=== PATIENT | male | born 1990 | race Caucasian/White ===

== ENCOUNTER 2018-07-11 18:54 | Inpatient (IN) | payer MEDICAID ==
[~2018-07-11] VITALS: Ht 170.2 cm; Wt 77.6 kg
[2018-07-11 19:19] VITALS: BP 134/71
--- NOTE | 2018-07-11 21:11 | NUR ---
PT AMBULATED TO ER BED 2
--- NOTE | 2018-07-11 21:23 | NUR ---
PT TO ED WITH CAREGIVER FOR C/O FEVER X1 DAY. PER CAREGIVR NO RECENT TRAVEL DENIES N/V/D. NO OBVIOUS DISTRESS NOTED. PT HAS HX OF AUTISM AND IS UNABLE TO VERBALIZE S/S OR CHIEF COMPLAINT. PT PLACED INTO BED, PENDING MD MARQUEZ. CAREGIVER AT BEDSIDE.
--- NOTE | 2018-07-11 22:20 | NUR ---
PT FEBRILE AT 101.1. MEDICATED PER FEVER PROTOCOL.
[2018-07-11] MEDS ORDERED: IBUPROFEN 400 MG TAB PO ONE (22:25)
--- NOTE | 2018-07-11 22:47 | NUR ---
# 14 FR Urinary catheter inserted utilizing sterile technique. Immediate return of 200 ml DARK YELLOW urine noted. Urine sample collected and sent to lab. Pt tolerated procedure WELL.
[2018-07-11 23:11] LABS: HEMATOCRIT 38.8 % (36-52); HEMOGLOBIN 13.5 g/dL (12.0-18.0); MEAN CORPUSCULAR HEMOGLOBIN 33 pg (27-31); MEAN CORPUSCULAR HGB CONC 35 g/dL (33-37); MEAN CORPUSCULAR VOLUME 94.4 fL (80-94); PLATELET COUNT (AUTO) 411 K/uL (140-450); RED BLOOD CELL COUNT(AUTO) 4.11 MIL/uL (4.20-6.10); RED CELL DISTRIBUTION WIDTH 13.2 % (11.6-13.7); WHITE BLOOD COUNT (AUTO) 21.4 K/uL (4.8-10.8)
[2018-07-11 23:20] LABS: APPEARANCE,URINE CLEAR (CLEAR); BILIRUBIN,URINE NEGATIVE (NEGATIVE); BLOOD, URINE 3+ (NEGATIVE); COLOR,URINE YELLOW (YELLOW); LEUKOCYTE ESTERASE ,URINE NEGATIVE (NEGATIVE); NITRITE, URINE NEGATIVE (NEGATIVE); UGLUCOSE NEGATIVE (NEGATIVE)
[2018-07-11 23:23] LABS: ANION GAP 14.9 (8-16); CARBON DIOXIDE 24.6 mmol/L (21-32); CREATININE 0.7 mg/dL (0.7-1.3); POTASSIUM 3.5 mmol/L (3.5-5.1)
[2018-07-11 23:29] LABS: ALBUMIN 3.5 g/dL (3.4-5.0); TOTAL BILIRUBIN 0.3 mg/dL (0.0-1.0)
[2018-07-11 23:34] LABS: RBC,URINE 20-50 /HPF (0-5)
[2018-07-11 23:40] LABS: LYMPHOCYTES % (MANUAL) 6 % (20-46); MONOCYTES % (MANUAL) 9 % (5-12)
[2018-07-11] MEDS ORDERED: NACL 0.9% 2,000 ML IV ONE (23:50)
[2018-07-12] MEDS ORDERED: MORPHINE SULFATE 2 MG/ML SYR IVP PRN (02:00)
[2018-07-12] MEDS ORDERED: ZOLPIDEM 5 MG TAB PO PRN (02:00)
[2018-07-12] MEDS ORDERED: HYDROcodone/APAP 5/325 MG 1 TAB TAB PO PRN (02:00)
[2018-07-12] MEDS ORDERED: ONDANSETRON 4 MG/2 ML VIAL IM/IVP PRN (02:00)
[2018-07-12] MEDS ORDERED: LORazepam 2 MG/ML VIAL IM/IVP PRN (02:00)
[2018-07-12] MEDS ORDERED: DOCUSATE SODIUM 100 MG GELCAP PO PRN (02:00)
[2018-07-12 02:30] VITALS: BP 109/61
--- NOTE | 2018-07-12 02:35 | NUR ---
RECEIVED PT FROM ER VIA CORY REPORT GIVEN AT BED SIDE PT AAOX1 PT HX MENTAL RETARDED, PT FOLLOW SIMPLE COMMANDS RESPOND BY CALLING HIS NAME BY PT IS NONVERBAL, AMBULATORY ON TELEMETRY SR97 FIRST AVB,, IV ON RT AC GAUGE # 20 PATENT SKIN IS INTACT , NARES ARE SWAB FOR MRSA SCREENING PROTOCOL AND SENT TO LAB, LIME PLANT OPERATOR AT BED SIDE GIVING INFORMATION ABOUT PT PT AND CAREGIVER ARE ORIENTED TO THE FLOOR CALL LIGHT WITHIN REACH
--- NOTE | 2018-07-12 02:37 | NUR ---
Patient will be admitted to care of DR BADILLO. Admited to TELE. Will go to room 122-B. Belongings list completed. Report to KATI CASTRO.
[2018-07-12 02:38] LABS: PROTHROMBIN TIME 10.5 secs (10.8-13.4)
[2018-07-12 02:45] LABS: CHOL/HDL RATIO 2.7 (1-4.5); MAGNESIUM 1.7 mg/dL (1.8-2.4); PHOSPHORUS 4.2 mg/dL (2.5-4.9); THYROID STIMULATING HORMONE 0.73 uIU/mL (0.34-3.74)
[2018-07-12] MEDS: NACL 0.9% 1,000 ML IV SCH ×3 (02:49→21:59)
[2018-07-12] MEDS ORDERED: PIPERACILLIN/TAZOBACTAM 3.375 GM VIAL IV ONE (03:08)
[2018-07-12] MEDS ORDERED: VANCOMYCIN 1,000 MG VIAL ONE ×2 (03:08→04:10)
[2018-07-12] MEDS ORDERED: PIPERACILLIN/TAZOBACTAM 3.375 GM in DEXTROSE 5% 50 ML IV SCH (03:15)
[2018-07-12] MEDS ORDERED: VANCOMYCIN PER PHARMACY MC PRN (03:20)
[2018-07-12] MEDS ORDERED: VANCOMYCIN 1,000 MG in DEXTROSE 5% 250 ML IV SCH (03:30)
[2018-07-12] MEDS ORDERED: VANCOMYCIN 1,250 MG in DEXTROSE 5% 250 ML IV SCH (03:45)
[2018-07-12] MEDS ORDERED: LEVE1000 PO (04:07)
[2018-07-12] MEDS ORDERED: DIVA500T1 PO (04:07)
[2018-07-12] MEDS ORDERED: CLON0.5T11 PO (04:07)
[2018-07-12] MEDS ORDERED: QUET100T PO (04:07)
[2018-07-12] MEDS ORDERED: VITA1TAB44 PO (04:07)
[2018-07-12] MEDS ORDERED: VITD1000 PO (04:07)
[2018-07-12] MEDS ORDERED: CARB100T PO (04:07)
--- NOTE | 2018-07-12 04:08 | NUR ---
ZOSYN IVPB AND VANCOMYCIN IS GIVEN ORDER
--- NOTE | 2018-07-12 04:15 | NUR ---
SITTER AT BED SIDE NOT DISTRESS NOTED AT THIS TIME
[2018-07-12] MEDS ORDERED: MAGNESIUM OXIDE 400 MG TAB PO SCH (04:45)
--- NOTE | 2018-07-12 06:00 | NUR ---
PT SLEEPING WELL ON SR ON TELE PT WILL BE ENDORSED TO DAY SHIF NURSE TO CONTINUE CARE
[2018-07-12] MEDS ORDERED: PIPER/TAZO 3.375GM/D5W PREMIX 50 ML IV SCH ×2 (07:00→12:00)
--- NOTE | 2018-07-12 07:15 | NUR ---
Received bedside report from pm nurse Rima. Pt awake, nonverbal, FLACC 0. Sitter at bedside. Left AC IV intact & asymptomatic, site wrapped with stretch gauze. Pt noted to be pulled on gauze. Education provided re: need for IVF & IV abx. Pt unable to return demonstrate teaching nor verbalize understanding.
[2018-07-12 08:00] VITALS: BP 137/90
--- NOTE | 2018-07-12 08:00 | NUR ---
Spoke to Kof[facility] pharmacist & inquired about Zosyn dose scheduled for 0700 with last dose given at 0300. Per Kofi, he will reschedule 0700 dose for 0900.
[2018-07-12] MEDS: VIT-B COMP/VIT-C/FOLIC ACID 1 TAB PO SCH (08:35)
[2018-07-12] MEDS: levETIRAcetam 500 MG TAB PO SCH ×2 (08:36→20:56)
[2018-07-12] MEDS: QUEtiapine FUMARATE 100 MG TAB PO SCH ×2 (08:37→20:57)
--- NOTE | 2018-07-12 08:37 | NUR ---
PATIENT HAS BEEN SCREENED AND CATEGORIZED HIGH NUTRITION RISK. PATIENT WILL BE SEEN WITHIN 1-2 DAYS OF ADMISSION. 07/12/18-07/13/[address]
[2018-07-12] MEDS: LACTOBACILLUS RHAMNOSUS GG 1 EACH CAP PO SCH (08:38)
[2018-07-12] MEDS: CHOLECALCIFEROL 1,000 IU TAB PO SCH ×2 (08:39→21:00)
[2018-07-12] MEDS: PIPER/TAZO 3.375GM/D5W PREMIX 50 ML IV SCH ×3 (08:54→20:53)
--- NOTE | 2018-07-12 09:30 | NUR ---
PO medications administered whole, one-by-one, with small amt applesauce, with pt sitting upright in bed. No signs of dysphagia/aspiration noted. Pt mumbling "food, food". Dr. Cha notified of efficient swallowing. Per physician, she will ask [facility] of usual diet consistency & will input diet order.
--- NOTE | 2018-07-12 09:34 | NUR ---
Received phone call from Nataliya Leyva (business systems administrator from [facility]). Addendum: 07/12/18 at [address] RN Addendum: Nataliya notified of pt's current status.
--- NOTE | 2018-07-12 10:45 | NUR ---
Received call from [facility] pharmacist with request to clarify Tegretol & Divalproex if ER/XR, & if Clonazepam is given routinely. Will call responsible alliance party.
[2018-07-12 10:54] LABS: BASOPHILS % (AUTO) 0.1 % (0.0-2.0); EOSINOPHILS % (AUTO) 0.1 % (0.0-4.0); HEMATOCRIT 38.4 % (36-52); HEMOGLOBIN 13.2 g/dL (12.0-18.0); LYMPHOCYTES # (AUTO) 1.4 K/uL (2.0-11.5); LYMPHOCYTES % (AUTO) 6.4 % (20.5-51.1); MEAN CORPUSCULAR HEMOGLOBIN 33 pg (27-31); MEAN CORPUSCULAR HGB CONC 35 g/dL (33-37); MEAN CORPUSCULAR VOLUME 94.6 fL (80-94); MONOCYTES # (AUTO) 1.9 K/uL (0.8-1.0); MONOCYTES % (AUTO) 8.9 % (1.7-9.3); NEUTROPHILS # (AUTO) 18.3 K/uL (1.8-7.7); NEUTROPHILS % (AUTO) 84.5 % (42.2-75.2); PLATELET COUNT (AUTO) 380 K/uL (140-450); RED BLOOD CELL COUNT(AUTO) 4.06 MIL/uL (4.20-6.10); RED CELL DISTRIBUTION WIDTH 13.3 % (11.6-13.7); WHITE BLOOD COUNT (AUTO) 21.7 K/uL (4.8-10.8)
--- NOTE | 2018-07-12 11:00 | NUR ---
Spoke to Nataliya on the phone & clarified that Tegretol & Divalproex ER/XR were given at [facility], & clonazepam was given routinely. Also clarified diet texture. Per Nataliya, pt takes mech soft chopped diet. [facility] pharmacist notified of med clarification, & Dr Cha notified of diet followed at [facility].
[2018-07-12 11:09] LABS: ANION GAP 13.9 (8-16); CARBON DIOXIDE 24.1 mmol/L (21-32); CREATININE 0.6 mg/dL (0.7-1.3)
[2018-07-12 12:00] VITALS: BP 136/84
[2018-07-12] MEDS ORDERED: DIVALPROEX 500 MG TABEC PO SCH (12:00)
[2018-07-12] MEDS ORDERED: carBAMazepine 200 MG TAB PO SCH (12:00)
[2018-07-12] MEDS: ACETAMINOPHEN 325 MG TAB PO PRN ×2 (12:00→20:55)
--- NOTE | 2018-07-12 12:00 | NUR ---
Acetaminophen administered for oral temp 100.5�F. Pt awake, nonverbal, FLACC 0, able to follow simple commands. No cough noted. No hematuria. Thick blankets removed. Room temp kept between 70-75�F. Tepid sponge bath provided.
[2018-07-12] MEDS: clonazePAM 0.5 MG TAB PO SCH ×2 (12:01→16:34)
--- NOTE | 2018-07-12 13:00 | NUR ---
Acetaminophen reassessment: Current oral temp is 99.0�F. Pt asleep, arousable by auditory stimuli. Able to follow simple commands, but requires reinforcement to avoid pulling on IV & security monitor leads. No cough noted. No foul-smelling urine. Room kept cool, no thick blankets. No shivering noted. Sitter at bedside.
--- NOTE | 2018-07-12 13:24 | NUR ---
07/12/18 RD INITIAL ASSESSMENT COMPLETED PLEASE REFER TO NUTRITION ASSESSMENT UNDER CARE ACTIVITY FOR ESTIMATED NUTRITIONAL NEEDS. RD RECOMMENDATIONS: 1. CONTINUE MECHANICAL SOFT DIET TOLERATED. 2. RD WILL F/U 2-3 DAYS; HIGH RISK. JOSE A YOO, RD
--- NOTE | 2018-07-12 13:30 | NUR ---
Pt observed picking on IV site. Pt's attention redirected to TV. Left AC IV intact & asymptomatic with ongoing NS @ 100ml/hr, site wrapped with stretch gauze. Sitter remains at bedside.
[2018-07-12 16:00] VITALS: BP 124/75
--- NOTE | 2018-07-12 16:00 | NUR ---
Elevated temp: Pt with temporal temp of 100.7�F. Pt awake, nonverbal, no cough/SOB, FLACC 0. Thick blanket removed, room temp decreased, tepid sponge bath provided. Left AC IV intact with ongoing NS @ 100ml/hr. Sitter at bedside. Per sitter, pt cont to have frequent episodes of picking on IV & air cargo agent leads & requires reinforcement & redirection. Will cont to monitor.
--- NOTE | 2018-07-12 17:00 | NUR ---
Temp reassessment: Current oral temp is 99.5�F. Pt awake, no SOB/cough, no foul-smelling urine. Will cont to monitor.
--- NOTE | 2018-07-12 18:10 | NUR ---
Pt in upright position in bed, eating dinner with mod assist by sitter. No signs of distress. Left AC IV intact with ongoing NS @ 100ml/hr.
--- NOTE | 2018-07-12 19:10 | NUR ---
Bedside report given to pm nurse Rima. Pt in bed, awake, no signs of distress. Sitter at bedside.
--- NOTE | 2018-07-12 19:15 | NUR ---
RECEIVED PT FROM HUGH RN PT NONVERBAL, MENTAL DISABILITY , SIDE RAIL PADDED IV ON LEFT ARM INFUSING WELL ON TELEMETRY ST, PT AAOX1 FOLLOW SIMPLE COMMANDS SITTER AT BED SIDE INITIAL ASSESSMENT DONE
[2018-07-12 20:00] VITALS: BP 144/92
[2018-07-12] MEDS: DIVALPROEX 500 MG TABEC PO SCH (20:56)
[2018-07-12] MEDS: carBAMazepine 200 MG TAB PO SCH (20:59)
--- NOTE | 2018-07-12 21:45 | NUR ---
AFTER TYLENOL GIVEN FOR FEVER AND COLD MEASURES APPLY TEMP LOWER TO 99.
--- NOTE | 2018-07-12 23:21 | NUR ---
PT SLEEPING SITTER AT BED SIDE . ST ON TELEMETRY PT KEEP MOVING AND TRYING TO REMOVE CONSTANTLY THE TELEMETRY PAD
[2018-07-13] VITALS: BP 110/53
--- NOTE | 2018-07-13 01:00 | NUR ---
SPONGE BATH GIVEN LINEN CHANGED ON TELEMETRY ST PT COOPERATIVE TO TURN, NOT FEVER NOTED
[2018-07-13] MEDS: PIPER/TAZO 3.375GM/D5W PREMIX 50 ML IV SCH ×4 (02:20→22:01)
[2018-07-13] MEDS: NACL 0.9% 1,000 ML IV SCH ×2 (02:50→23:26)
--- NOTE | 2018-07-13 03:00 | NUR ---
PT AWAKE SITTER AT BEDSIDE PT KEEP TRYING REMOVING PD FROM TELEMETRY , PT INCONTINENT LINEN CHANGED NECESSARY
[2018-07-13 04:00] VITALS: BP 124/93
--- NOTE | 2018-07-13 05:07 | NUR ---
DR MENENDEZ WAS NOTIFY PT CONDITION AND TRYING REMOVING PAD FROM TELMETRY AND BITE , LINEN CHANGED
[2018-07-13 06:20] LABS: BASOPHILS # (AUTO) 0.1 K/uL (0.00-0.22); BASOPHILS % (AUTO) 0.3 % (0.0-2.0); CREATININE 0.5 mg/dL (0.7-1.3); EOSINOPHILS # (AUTO) 0.3 K/uL (0-0.4); EOSINOPHILS % (AUTO) 1.5 % (0.0-4.0); HEMATOCRIT 35.3 % (36-52); HEMOGLOBIN 12.2 g/dL (12.0-18.0); LYMPHOCYTES # (AUTO) 3.3 K/uL (2.0-11.5); LYMPHOCYTES % (AUTO) 17.4 % (20.5-51.1); MEAN CORPUSCULAR HEMOGLOBIN 33 pg (27-31); MEAN CORPUSCULAR HGB CONC 35 g/dL (33-37); MEAN CORPUSCULAR VOLUME 96.4 fL (80-94); MONOCYTES # (AUTO) 1.9 K/uL (0.8-1.0); MONOCYTES % (AUTO) 10.3 % (1.7-9.3); NEUTROPHILS # (AUTO) 13.4 K/uL (1.8-7.7); NEUTROPHILS % (AUTO) 70.5 % (42.2-75.2); PLATELET COUNT (AUTO) 404 K/uL (140-450); RED BLOOD CELL COUNT(AUTO) 3.66 MIL/uL (4.20-6.10); RED CELL DISTRIBUTION WIDTH 13.5 % (11.6-13.7); WHITE BLOOD COUNT (AUTO) 18.9 K/uL (4.8-10.8)
[2018-07-13 06:25] LABS: MAGNESIUM 2.1 mg/dL (1.8-2.4); PHOSPHORUS 4.1 mg/dL (2.5-4.9)
--- NOTE | 2018-07-13 06:25 | NUR ---
PT SLEEPING AT THIS TIME ON TELEMETRY SR NOT FEVER SITTER AT BED SIDE PT WILL BE ENDORSED TO DAY SHIFT NURSE FOR CONTINUITY OF CARE
--- NOTE | 2018-07-13 07:15 | NUR ---
RECEIVED BEDSIDE REPORT FROM NIGHT NURSE. PT IS AOX1 RESTING IN BED WITH NO OBVIOUS SIGNS OF ACUTE DISTRESS WITH BREATHING EQUAL BOTH SIDES UNLABORED. PT FLACC0. LEFT AC IV SITE PATENT AND ASYMPTOMATIC INFUSING NS@100ML/HR. ALL SAFETY MEASURES IN CHECK, SITTER BY BEDSIDE. CALL LIGHT WITHIN REACH.
[2018-07-13 08:00] VITALS: BP 141/94
[2018-07-13] MEDS: VIT-B COMP/VIT-C/FOLIC ACID 1 TAB PO SCH (08:47)
[2018-07-13] MEDS: LACTOBACILLUS RHAMNOSUS GG 1 EACH CAP PO SCH (08:47)
[2018-07-13] MEDS: CHOLECALCIFEROL 1,000 IU TAB PO SCH ×2 (08:47→22:04)
[2018-07-13] MEDS: QUEtiapine FUMARATE 100 MG TAB PO SCH ×2 (08:47→22:03)
[2018-07-13] MEDS: carBAMazepine 200 MG TAB PO SCH ×2 (08:47→22:03)
[2018-07-13] MEDS: levETIRAcetam 500 MG TAB PO SCH ×2 (08:48→22:03)
[2018-07-13] MEDS: DIVALPROEX 500 MG TABEC PO SCH ×2 (08:48→22:02)
[2018-07-13] MEDS: clonazePAM 0.5 MG TAB PO SCH ×3 (08:49→16:19)
--- NOTE | 2018-07-13 08:56 | NUR ---
ADMINISTERED MEDICATIONS, PT TOLERATED WELL. PT HAS NO OBVIOUS SIGNS OF DISTRESS, BREATHING SYMMETRICAL AND UNLABORED.
[2018-07-13 12:00] VITALS: BP 139/93
--- NOTE | 2018-07-13 12:38 | NUR ---
ADMINISTERED MEDICATION. PT CURRENTLY SITTING UP IN BED WITH THE TUBER OPERATOR FEEDING HIM LUNCH. NO OBVIOUS SIGNS OF DISTRESS.
--- NOTE | 2018-07-13 12:59 | NUR ---
WAS PHONED BY MARIANELA AT [facility]. SHE WANTED TO KNOW IF PATIENT WAS CURRENTLY STABLE, HOW HIS FEVER IS DOING, AND IF HE WAS CURRENTLY STILL ON ANTIBIOTICS. PROVIDED THIS INFORMATION TO HER AND INFORMED HER TO CALL ME BACK FOR ANY FURTHER INFORMATION.
--- NOTE | 2018-07-13 14:33 | NUR ---
PT IS SLEEPING IN BED AT THIS TIME, BREATHING SYMMETRICAL AND UNLABORED WITH NO OBVIOUS SIGNS OF DISTRESS.
--- NOTE | 2018-07-13 15:09 | NUR ---
ADMINISTERED MEDICATION, PT CURRENTLY SLEEPING IN BED WITH SITTER BY BEDSIDE. BREATHING IS EQUAL AND UNLABORED WITH NO OBVIOUS SIGNS OF DISTRESS.
[2018-07-13 15:43] VITALS: BP 131/90
--- NOTE | 2018-07-13 16:23 | NUR ---
ADMINISTERED MEDICATION. PT IS SITTING UP IN BED WITH SITTER AT BEDSIDE. NO OBVIOUS SIGNS OF DISTRESS AND PT BREATHING SYMMETRICAL AND WITHOUT LABOR.
--- NOTE | 2018-07-13 18:07 | NUR ---
PT SITTING UP IN BED WITH SITTER PRESENT. SITTER STATES PT FINISHED DINNER RECENTLY AND TOLERATED IT WELL. PT HAS NO OBVIOUS SIGNS OF DISTRESS WITH BREATHING SYMMETRICAL AND UNLABORED.
--- NOTE | 2018-07-13 19:05 | NUR ---
GAVE BEDSIDE REPORT DISCUSSED POC AND ENDORSED TO NIGHT NURSE. PT IS STABLE WITH NO OBVIOUS SIGNS OF DISTRESS.
--- NOTE | 2018-07-13 19:05 | NUR ---
RECEIVED REPORT AT BEDSIDE FROM YOBANI PARIKH AND EVENS PARIKH FOR CONTINUITY OF CARE, PT IN STABLE CONDITION.
[2018-07-13 20:00] VITALS: BP 123/69
--- NOTE | 2018-07-13 20:00 | NUR ---
PT IN BED, ALL FALLS AND SEIZURE PRECAUTIONS IN PLACE. PT IS AOX1 WITH SKIN INTACT AND PT HAS A 22G LEFT AC RUNNING N/S AT 60MLS/HR. IV SITE INTACT AND FLUSHED PATENT. PT HAS SITTER AT BEDSIDE. V/S FOLLOWS T98.1 P 70 R 18 B/P 123/69 02 91% ON ROOM AIR. PT INCONTINENT AND WAS CHANGED. NO S/S OF PAIN OR DISTRESS NOTED.
--- NOTE | 2018-07-13 21:00 | NUR ---
PT GIVEN ALL DUE MEDS WITH APPLE SAUCE AND CRANBERRY JUICE. IV ABT ZOSYN HUNG AND RUNNING AT 100MLS/HR ORDERED. SITTER AT BEDSIDE.
[2018-07-14] VITALS: BP 105/56
--- NOTE | 2018-07-14 | NUR ---
PT IN BED SLEEPING NO S/S OF PAIN OR DISTRESS NOTED, SITTER AT BEDSIDE. V/S FOLLOWS T 97.0 P 82 R 18 B/P 128/86 02 96% ON ROOM AIR. ALL FALLS PRECAUTIONS IN PLACE . IV SITE INTACT AND RUNNING N/S AT 60MLS/HR. PT CHANGED NO S/S OF PAIN OR DISTRESS NOTED.
[2018-07-14] MEDS: PIPER/TAZO 3.375GM/D5W PREMIX 50 ML IV SCH ×4 (02:30→20:30)
[2018-07-14 04:00] VITALS: BP 128/86
--- NOTE | 2018-07-14 04:00 | NUR ---
PT IN BED SLEEPING IV REMAINS INTACT RUNNING N/S ORDERED.
--- NOTE | 2018-07-14 04:30 | NUR ---
PT SLEEPING V/S FOLLOWS T 97.0 P 82 R 18 B/P 128/86 02 96%. ON ROOM AIR.
--- NOTE | 2018-07-14 07:15 | NUR ---
REPORT GIVEN TO ELI PARIKH DAY SHIFT NURSE AT BEDSIDE FOR CONTINUITY OF CARE,PT IN STABLE CONDITION.
--- NOTE | 2018-07-14 07:20 | NUR ---
RECEIVED PT FROM PUBLIC HEALTH TECHNICIAN NURSE, SRAVANI, PT IS ON A 1:1 SITTER, PT IS AWAKE AND SEATED ON THE BED WITH SIDE RAILS UP AND CALL LIGHT WITHIN REACH, PT HAS AN IV LINE ON THE LEFT AC G. 20 WITH NS AT 60ML/HR INFUSING, INTACT AND REINFORCED WITH BANDAGE BECAUSE PT IS TRYING TO REMOVE IT. PT HAS MENTAL DISABILITY. FALL PRECAUTION INITIATED. WILL CONTINUE TO MONITOR PT.
[2018-07-14 07:31] LABS: ANION GAP 10.8 (8-16); BASOPHILS % (AUTO) 0.4 % (0.0-2.0); CARBON DIOXIDE 29.1 mmol/L (21-32); CREATININE 0.6 mg/dL (0.7-1.3); EOSINOPHILS # (AUTO) 0.5 K/uL (0-0.4); EOSINOPHILS % (AUTO) 5.5 % (0.0-4.0); HEMATOCRIT 36.2 % (36-52); HEMOGLOBIN 12.3 g/dL (12.0-18.0); LYMPHOCYTES # (AUTO) 2.4 K/uL (2.0-11.5); LYMPHOCYTES % (AUTO) 28.9 % (20.5-51.1); MEAN CORPUSCULAR HEMOGLOBIN 33 pg (27-31); MEAN CORPUSCULAR HGB CONC 34 g/dL (33-37); MEAN CORPUSCULAR VOLUME 96.6 fL (80-94); MONOCYTES # (AUTO) 0.7 K/uL (0.8-1.0); NEUTROPHILS # (AUTO) 4.8 K/uL (1.8-7.7); NEUTROPHILS % (AUTO) 57.2 % (42.2-75.2); PLATELET COUNT (AUTO) 382 K/uL (140-450); POTASSIUM 3.9 mmol/L (3.5-5.1); RED BLOOD CELL COUNT(AUTO) 3.75 MIL/uL (4.20-6.10); RED CELL DISTRIBUTION WIDTH 13.6 % (11.6-13.7); WHITE BLOOD COUNT (AUTO) 8.4 K/uL (4.8-10.8)
[2018-07-14 07:38] LABS: MAGNESIUM 2.1 mg/dL (1.8-2.4); PHOSPHORUS 4.8 mg/dL (2.5-4.9)
[2018-07-14 08:00] VITALS: BP 126/85
--- NOTE | 2018-07-14 08:30 | NUR ---
PT IS AWAKE AND IV LINE WAS PULLED OUT, VITAL SIGNS TAKEN AND IS STABLE, A NEW IV LINE WAS STARTED ON THE LEFT HAND G.24, INTACT.
[2018-07-14] MEDS: DIVALPROEX 500 MG TABEC PO SCH ×2 (09:38→20:29)
[2018-07-14] MEDS: QUEtiapine FUMARATE 100 MG TAB PO SCH ×2 (09:39→20:30)
[2018-07-14] MEDS: CHOLECALCIFEROL 1,000 IU TAB PO SCH ×2 (09:39→20:44)
[2018-07-14] MEDS: levETIRAcetam 500 MG TAB PO SCH ×2 (09:39→20:30)
[2018-07-14] MEDS: VIT-B COMP/VIT-C/FOLIC ACID 1 TAB PO SCH (09:39)
[2018-07-14] MEDS: LACTOBACILLUS RHAMNOSUS GG 1 EACH CAP PO SCH (09:39)
[2018-07-14] MEDS: carBAMazepine 200 MG TAB PO SCH ×2 (09:41→20:30)
[2018-07-14] MEDS: clonazePAM 0.5 MG TAB PO SCH ×3 (09:44→17:19)
[2018-07-14 12:00] VITALS: BP 123/90
--- NOTE | 2018-07-14 13:35 | NUR ---
PT IS AWAKE AND SEATED ON THE BED, SITTER ON THE BEDSIDE, VITAL SIGNS CHECKED AND BP IS 123/90, PULSE IS 98, O2 SATURATION IS 99%, ORAL MEDICATION WAS GIVEN TO PT AND PT TOLERATED IT. NO SIGN OF DISTRESS NOTED AND WILL MONITOR PT.
--- NOTE | 2018-07-14 15:00 | NUR ---
PT'S IV LINE WAS PULLED OUT PER KIRSTEN. WILL REINSERT A NEW IV LINE
--- NOTE | 2018-07-14 15:55 | NUR ---
PT IS AWAKE AND SEATED ON TRHE BED, A NEW IV LINE WAS STARTED TO THE PT'S LEFT FA G.22, IV MEDICATION WAS GIVEN VIA PIGGYBACK ABND PT TOLERATED IT. NO SIGN OF DISTRESS NOTED AND WILL MONITOR PT.
[2018-07-14 16:00] VITALS: BP 145/88
[2018-07-14] MEDS: NACL 0.9% 1,000 ML IV SCH (16:06)
--- NOTE | 2018-07-14 16:35 | NUR ---
PT WAS STARTED ON A NEW IV LINE ON THE LEFT FA G.22, INTACT AND ATTACHED TO IVF OF NS AT 60ML/HR.
--- NOTE | 2018-07-14 17:20 | NUR ---
PT IS AWAKE AND SEATED ON THE BED WITH SITTER ON THE BEDSIDE, VITAL SIGNS TAKEN, BNP IS 146/96, PULSE IS 94, O2 SATURATION IS 98%, TEMPERATURE IS 97.7 AND RESPIRATION IS 16/MIN. NO SIGN OF DISTRESS NOTED AND WILL MONITOR PT.
--- NOTE | 2018-07-14 18:51 | NUR ---
RECEIVED A CRITICAL LAB REPORT FROM ROGER OF LAB ABOUT THE PT'S THROAT CULTURE IS POSITIVE FOR BETA HEMOLYTIC STREPTOCOCCUS GROUP A., DR. CARR WAS INFORMED.
--- NOTE | 2018-07-14 19:20 | NUR ---
ENDORSED PT TO PHARMACEUTICAL WORKER NURSEKAVON FOR CONTINUITY OF CARE, PT IS AWAKE AND STABLE WITH SITTER ON THE BEDSIDE.
--- NOTE | 2018-07-14 19:21 | NUR ---
RECEIVED BEDSIDE REPORT FROM ELI PARIKH. PT IS AAO X1. HAS SITTER AT BEDSIDE. PER NURSE PT KEPT REMOVING IV. PT ON ROOM AIR. RESPIRATIONS ARE EQUAL AND UNLABORED. IV ON LFA 22G IVF INFUSING PER ORDERS. PT IS INCONTINENT. PMH SEVERE MENTAL DELAYED. PT ON MECHANICAL SOFT DIET. SAFETY MEASURES ARE IN PLACE. WILL CONTINUE TO MONITOR.
--- NOTE | 2018-07-14 20:30 | NUR ---
SCHEDULED MEDICATIONS CRUSHED GAVE WITH APPLE SAUCE PT REFUSED ATTEMPTED WITH JELLO PT TOOK TWO MEDICATIONS THEN REFUSED REST. ADMINISTER MEDICATION WITH PUDDING. PT DID NOT TAKE VITAMIN D ALL OTHER MEDICATIONS GIVEN. WILL CONTINUE TO MONITOR.
--- NOTE | 2018-07-14 23:13 | NUR ---
PATIENT IS RESTING COMFORTABLY IN BED. NO S/S OF DISTRESS. ALL NEEDS MET AT THIS TIME WILL CONTINUE TO MONITOR. SITTER AT BEDSIDE.
[2018-07-14 23:58] VITALS: BP 132/71
--- NOTE | 2018-07-15 | NUR ---
VITAL SIGNS ARE WITHIN NORMAL LIMITS. ALL NEEDS MET AT THIS TIME. WILL CONTINUE TO MONITOR. SITTER AT BEDSIDE
[2018-07-15] MEDS: PIPER/TAZO 3.375GM/D5W PREMIX 50 ML IV SCH ×2 (03:10→09:59)
--- NOTE | 2018-07-15 03:10 | NUR ---
PATIENT HAD A LARGE BM. PT CLEANED AND REPOSITION FOR COMFORT. ZOSYN NOW INFUSING PER ORDERS. ALL NEEDS MET AT THIS TIME. WILL CONTINUE TO MONITOR. SITTER AT BEDSIDE.
[2018-07-15] MEDS: NACL 0.9% 1,000 ML IV SCH (05:06)
--- NOTE | 2018-07-15 07:18 | NUR ---
GAVE BEDSIDE REPORT TO LISSY PARIKH. PT ENDORSED IN STABLE CONDITION.
--- NOTE | 2018-07-15 07:20 | NUR ---
RECEIVED BEDSIDE REPORT FROM DIRECTOR OF FOOD AND NUTRITION SERVICES NURSE FOR CONTINUITY OF CARE. PATIENT WAS AWAKE AND RESTING ON BED. PATIENT IS AOX1 TO NAME AND KEEP MOUTHING "[id number]". HAS SITTER AT BEDSIDE. IV ON LFA 22G, CLEAN AND INTACT, NOT INFUSING AT THIS TIME, WRAP AROUND WITH KLEX. PATIENT WAS ATTEMPTING TO REMOVE IV LINE. RESPIRATION EVEN AND UNLABORED ON RA. NO SIGNS OF DISTRESS NOTED.PT IS INCONTINENT. PMH SEVERE MENTAL DELAYED. PT ON MECHANICAL SOFT DIET. SAFETY MEASURES ARE IN PLACE. BED IN LOW POSITION.
[2018-07-15 08:00] VITALS: BP 138/82
[2018-07-15] MEDS ORDERED: AMOX500C25 PO (08:22)
[2018-07-15] MEDS ORDERED: INUL1CTB PO (08:22)
[2018-07-15] MEDS: DIVALPROEX 500 MG TABEC PO SCH (10:10)
[2018-07-15] MEDS: carBAMazepine 200 MG TAB PO SCH (10:10)
[2018-07-15] MEDS: CHOLECALCIFEROL 1,000 IU TAB PO SCH (10:11)
[2018-07-15] MEDS: LACTOBACILLUS RHAMNOSUS GG 1 EACH CAP PO SCH (10:11)
[2018-07-15] MEDS: clonazePAM 0.5 MG TAB PO SCH ×2 (10:12→13:25)
[2018-07-15] MEDS: QUEtiapine FUMARATE 100 MG TAB PO SCH (10:12)
[2018-07-15] MEDS: VIT-B COMP/VIT-C/FOLIC ACID 1 TAB PO SCH (10:12)
[2018-07-15] MEDS: levETIRAcetam 500 MG TAB PO SCH (10:13)
--- NOTE | 2018-07-15 10:16 | NUR ---
ADMINISTERED MEDS PER MD ORDER, CRUSHED AND MIXED MEDS IN PUDDING, PATIENT TOLERATED WELL. PATIENT IS RESTING ON BED AT THIS TIME. NO SIGNS OF DISTRESS NOTED. SITTER IS BY BEDSIDE. SAFETY MEASURES IN PLACE.
--- NOTE | 2018-07-15 10:35 | NUR ---
PATIENT WAS ATTEMPTING TO GET OUT OF BED. REORIENTED PATIENT AND POSITIONED PATIENT COMFORTABLY ON BED. SAFETY MEASURES IN PLACE. 1:1 SITTER BY BEDSIDE.
--- NOTE | 2018-07-15 11:02 | NUR ---
CALLED AND NOTIFIED ALF GUDELIAJAIR THAT PATIENT HAS BEEN MEDICALLY CLEAR AND DISCHARGE BY DR. PER MRS GALEAS, HER AND DAUGHTER WILL MINISTER PATIENT AROUND [id number]. VERBALIZED UNDERSTANDING. INFORMED THAT DISCHARGE DOCUMENT HAS BEEN READY AND DR MCHUGH HAS BEEN READY.
--- NOTE | 2018-07-15 11:45 | NUR ---
PATIENT IS RESTING ON BED AT THIS TIME. NO SIGNS OF DISTRESS NOTED. SAFETY MEASURES IN PLACE. 1:1 SITTER BY BEDSIDE.
--- NOTE | 2018-07-15 12:25 | NUR ---
CYCLE SPECIALIST IS ASSISTING PATIENT TO EAT LUNCH AT THIS TIME. NO SIGNS OF DISTRESS NOTED. SAFETY MEASURES IN PLACE. 1:1 SITTER AT BEDSIDE.
--- NOTE | 2018-07-15 13:12 | NUR ---
MASTIC FLOOR LAYER IS CHANGING PATIENT AT THIS TIME. NO SIGNS OF DISTRESS NOTED. SAFETY MEASURES IN PLACE. 1:1 SITTER BY BEDSIDE. AWAITING FOR MEDIA SERVICES DIRECTOR TO ARRIVE.
--- NOTE | 2018-07-15 13:26 | NUR ---
ADMINISTERED MED PER MD ORDER, MIXED IN PUDDING, PATIENT TOLERATED WELL. PATIENT HAS BEEN CHANGE AND READY FOR DISCHARGE. AWAITING FOR GUDELIA ELISE. SAFETY MEASURES IN PLACE. 1:1 SITTER BY BEDSIDE.
--- NOTE | 2018-07-15 14:05 | NUR ---
DISCHARGE INSTRUCTION PROVIDED TO PATIENT, MR GALEAS AND SRUTHI AT BEDSIDE. EDUCATED THEM ON FOLLOW UP WITH MD, DISEASE MANAGEMENT, SIGNS AND SYMPTOMS, TAKE THE PRESCRIPTION MD PRESCRIBED, AND GO TO THE NEAREST EMERGENCY TO SEEK MEDICAL HELP WHEN NEEDED. ANSWERED ALL THEIR QUESTIONS. SRUTHI VERBALIZED UNDERSTANDING. PROVIDED SHOULDER XRAY REPORT, CD, AND DR NOTE PER REQUESTED. D/C IV AND IV CANNULA INTACT, MINIMAL BLEEDING AT IV SITE. REMOVED ALL ARM BANDS. SRUTHI CHECKED ALL CABINETS AND TOOK ALL HER BELONGINGS. PATIENT IS DISCHARGE AT THIS TIME IN A STABLE CONDITION.
== END 2018-07-15 14:05 | disposition home or self-care (01) | DRG 720 ==
LOC: MED 18:54 → MTU 07-12 01:56
PROVIDERS: ADMIT General Practice; ATTEND General Practice
DX: A41.9 Sepsis, unspecified organism (principal); E83.42 Hypomagnesemia; E87.1 Hypo-osmolality and hyponatremia; N39.0 Urinary tract infection, site not specified; R65.20 Severe sepsis without septic shock; G40.909 Epilepsy, unspecified, not intractable, without status epilepticus; F84.0 Autistic disorder; F79 Unspecified intellectual disabilities; J02.9 Acute pharyngitis, unspecified; B95.0 Streptococcus, group A, as the cause of diseases classified elsewhere
CPT/HCPCS: 36415; 36600; 71045; 73030; 80048; 80053; 80173; 81001; 82550; 82803; 83036; 83605; 83690; 83735; 84100; 84134; 84443; 85025; 85610; 85730; 87040; 87081; 87086; 87804; 96360; 99285; J2543; J3370; J7030; J7060; Q0092